=== PATIENT | male | born 1965 | race Caucasian/White ===

== ENCOUNTER 2022-04-26 17:42 | Emergency (ER) | payer OTHER ==
[2022-04-26 17:50] VITALS: BP 139/67
--- NOTE | 2022-04-26 18:34 | ED Physician Documentation ---
PD HPI LOWER EXT INJURY - Stated complaint Stated Complaint: LT KNEE INJ - Chief complaint Chief Complaint: Ext Problem - History obtained from History obtained from: Patient - History of Present Illness PD HPI LOW EXT INJURY LOCATION: Left, Upper leg Pain level max: 6 Pain level now: 3 Improved by: Rest Worsened by: Palpating Associated symptoms: No: Weakness, Numbness, Tingling, Swelling - Additional information Additional information: 56-year-old male presents to the emergency department left hamstring pain. This started after he tripped and fell over a piece of wire. He states that when he sits for a prolonged period of time it feels very sore, then loosens up as he walks. No deformity. No numbness or tingling. No knee pain. No hip pain. PD PAST MEDICAL HISTORY - Past Medical History Past Medical History: No Cardiovascular: None Respiratory: None Neuro: None Endocrine/Autoimmune: None GI: None : None HEENT: None Psych: None Musculoskeletal: None Derm: None - Present Medications Home Medications: Ambulatory Orders Medication Instructions Recorded Confirmed No Known Home Medications 04/26/22 04/26/22 - Allergies Allergies/Adverse Reactions: Allergies Allergy/AdvReac Type Severity Reaction Status Date / Time No Known Drug Allergies Allergy Verified 05/14/15 10:06 - Social History Does the pt smoke?: No Smoking Status: Never smoker Does the pt drink ETOH?: No Does the pt have substance abuse?: No - Immunizations Immunizations are current?: Yes - POLST Patient has POLST: No PD ED PE NORMAL - Vitals Vital signs reviewed: Yes - General General: Alert and oriented X 3, No acute distress - HEENT HEENT: Moist mucous membranes - Derm Derm: Warm and dry - Extremities Extremities: No deformity, Other (No tenderness over the left knee. No deformity. There is tenderness along the posterior aspect of the left thigh. No deformity. Neurovascular intact. Normal movement of the left knee. No effusion.) Results - Vitals Vitals: Vital Signs - 24 hr 04/26/22 04/26/22 04/26/22 17:46 18:23 18:44 Temperature 37.2 C Heart Rate 84 Respiratory 18 16 16 Rate Blood Pressure 139/67 H O2 Saturation 98 Oxygen O2 Source Room air PD Medical Decision Making - ED course Complexity details: considered differential, d/w patient ED course: Patient with what appears to be a hamstring strain. He is tender along the left hamstring. There is no deformity. No tenderness over the tendon insertions. No indication for x-ray at this time. Otherwise normal examination of the leg. We will continue supportive care and have him follow-up with his doctor. Patient declines pain medication here or for home. Patient counseled regarding signs and symptoms for which I believe and urgent re-evaluation would be necessary. Patient with good understanding of and agreement to plan and is comfortable going home at this time This document was made in part using voice recognition software. While efforts are made to proofread this document, sound alike and grammatical errors may occur. Departure - Departure Disposition: Home, Self Care Clinical Impression: Left hamstring muscle strain Qualifiers: Encounter type: initial encounter Qualified Code(s): S76.312A - Strain of muscle, fascia and tendon of the posterior muscle group at thigh level, left thigh, initial encounter Condition: Good Instructions: ED Strain Muscle Ext Follow-Up: your,doctor in 1-2 weeks [Other] Comments: Compression will often help to decrease the pain. Please follow-up with your doctor in 1 week for repeat evaluation. You can use Motrin, Tylenol or Aleve for pain. This may take several weeks to heal. Please return if you worsen. Discharge Date/Time: 04/26/22 18:58
== END 2022-04-26 18:58 | disposition home or self-care (01) ==
LOC: ED 17:42
DX: S76.312A Strain of muscle, fascia and tendon of the posterior muscle group at thigh level, left thigh, initial encounter (principal); W01.0XXA Fall on same level from slipping, tripping and stumbling without subsequent striking against object, initial encounter
CPT/HCPCS: 99282; 99283

== ENCOUNTER 2023-05-18 08:35 | Outpatient (CLI) | payer OTHER ==
--- NOTE | 2023-05-18 13:37 | XRAY Report ---
PROCEDURE: Hip w/Pelvis 2-3V LT INDICATIONS: LEFT HIP PAIN TECHNIQUE: AP view of the pelvis and lateral view of the left hip. COMPARISON: None. FINDINGS: Bones: No acute fractures or dislocations. No suspicious bony lesions. Mild degenerative changes are seen in the hips bilaterally. Degenerative changes also seen in the included lumbar spine. Soft tissues: No suspicious soft tissue calcifications. IMPRESSION: Mild bilateral hip osteoarthrosis. Reviewed by: Uziel Puente MD on 05/18/2023 1:36 PM PDT Approved by: Uziel Puente MD on 05/18/2023 1:36 PM PDT Station ID: [id number]
== END 2023-05-18 08:36 | disposition home or self-care (01) ==
LOC: DI 08:35
PROVIDERS: ATTEND Nurse Practitioner
DX: M16.0 Bilateral primary osteoarthritis of hip (principal)

== ENCOUNTER 2023-06-06 09:20 | Outpatient (CLI) | payer OTHER ==
--- NOTE | 2023-06-06 13:57 | XRAY Report ---
PROCEDURE: Lumbar Spine 2-3V INDICATIONS: BACK PAIN WITH RADICULOPATHY TECHNIQUE: 2 views of the lumbar spine were acquired. COMPARISON: None. FINDINGS: Bones: 5 [id number] vertebrae are present. There is normal bony alignment. Mild to moderate mu ltilevel disc height loss, most significant at the L5-S1 level and extends prominent at L4-5. Minor a nterior endplate spurs from L3 through S1. No vertebral body compression fractures. No suspicious b billy lesions. Soft tissues: Overlying bowel gas pattern is normal. No suspicious soft tissue calcifications. IMPRESSION: Mild to moderate multilevel disc height loss. No significant spondylolisthesis. Reviewed by: Shavon Gomes MD on 06/06/2023 1:56 PM PDT Approved by: Shavon Gomes MD on 06/06/2023 1:56 PM PDT Station ID: [id number]
== END 2023-06-06 09:21 | disposition home or self-care (01) ==
LOC: DI 09:20
PROVIDERS: ATTEND Physician Assistant
DX: M51.36 Other intervertebral disc degeneration, lumbar region (principal); M51.37 Other intervertebral disc degeneration, lumbosacral region